=== PATIENT | female | born 2005 | race Caucasian/White ===

== ENCOUNTER 2024-03-16 17:24 | Emergency (ER) | payer MEDICAID, SELFPAY ==
[2024-03-16 17:26] VITALS: BP 168/122
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
[2024-03-16 19:11] VITALS: BP 133/94
== END 2024-03-16 19:12 | disposition home or self-care (01) ==
LOC: EMR 17:24
PROVIDERS: EMERGENCY PHYSICIAN Emergency Medicine
DX: K64.9 Unspecified hemorrhoids (principal); F17.200 Nicotine dependence, unspecified, uncomplicated
CPT/HCPCS: 99282